=== PATIENT | male | born 1985 | race Caucasian/White ===

== ENCOUNTER 2024-08-22 21:41 | Emergency (ER) | payer BC, SELFPAY ==
--- NOTE | ~2024-08-22 | CT_ITS ---
CT of the Abdomen and Pelvis: Indication: Abdominal pain Technique: 2.5 mm axial scans were obtained through the abdomen and pelvis following intravenous adm inistration of 100 cc of Omnipaque 350. Dose reduction technique was used on this scan by utilizing a utomated exposure control and iterative reconstruction technique. The dose-length product (DLP) was 3 59.34 mGy-cm. Findings: Scans through the lung bases are unremarkable. The liver, spleen, pancreas, gallbladder, right adrenal and, and left kidney are within normal limits . There is a 3 mm right UVJ stone, with mild right hydroureteronephrosis. There is a 1.9 cm left adre nal nodule, indeterminate. There are mild atherosclerotic calcifications of the aorta. No lymphadeno fransisca. No bowel obstruction or bowel wall thickening. There is no evidence to suggest acute appendicitis. Images through the pelvis were performed. Urinary bladder otherwise unremarkable. No pelvic mass seen . No ascites. Impression: 3 mm right UVJ stone, with mild right hydroureteronephrosis. 1.9 cm indeterminate left adrenal nodule. Follow-up nonemergent MR advised to attempt to confirm missy gn adenoma. Reviewed, dictated and finalized at [facility]. Impression: 3 mm right UVJ stone, with mild right hydroureteronephrosis. 1.9 cm indeterminate left adrenal nodule. Follow-up nonemergent MR advised to a ttempt to confirm benign adenoma.
[2024-08-22 21:44] VITALS: BP 151/74; PULSE 83; RESP 14; TEMP 36.2; O2SAT 100
[2024-08-22 23:52] LABS: Basophils Absolute Auto 0.1 K/mm3 (0.0-0.1); Basophils Percent Auto 0.6 % (0.2-1.2); Eosinophils Absolute Auto 0.1 K/mm3 (0-0.3); Eosinophils Percent Auto 0.3 % (0-4.4); Hematocrit 48.5 % (42.0-52.0); Hemoglobin 16.6 g/dL (14.0-18.0); Immature Granulocyte Percent A 0.5 % (0-0.5); Lymphocytes Absolute Auto 1.71 K/mm3 (0.9-3.2); Lymphocytes Percent Auto 8.4 % (18.3-44.2); Mean Corpuscular HGB Conc 34.2 g/dl (32-36); Mean Corpuscular Hemoglobin 31.6 pg (26-34); Mean Corpuscular Volume 92.4 fl (80-100); Mean Platelet Volume 9.7 fl (7.4-10.4); Monocytes Percent Auto 4.6 % (2.6-8.5); Neutrophils Absolute Auto 17.5 K/mm3 (1.3-6.7); Neutrophils Percent Auto 85.6 % (45.5-73.1); Platelet Count Result 288 k/mm3 (150-375); Red Blood Count 5.25 M/mm3 (4.6-6.20); Red Cell Distribution Width 12.9 % (11.5-14.5); White Blood Count 20.4 K/mm3 (4.5-10.0)
[2024-08-23 00:04] LABS: Alanine Aminotransferase 13 U/L (6-50); Albumin Level 4.8 g/dL (3.5-5.1); Alkaline Phosphatase 100 U/L (38-126); Anion Gap 9 mmol/L (4-12); Aspartate Amino Transferase 27 U/L (17-59); Bilirubin,Total 0.6 mg/dL (0.2-1.3); Blood Urea Nitrogen 14 mg/dL (9-20); Calcium 9.5 mg/dL (8.4-10.2); Carbon Dioxide 27 mmol/L (22-30); Chloride 101 mmol/L (98-107); Estimated CRCL calculation 102 ml/min; Estimated Glomerular Filt Rate > 60; Glucose 112 mg/dL (65-110); Lipase 53 U/L (23-300); Sodium 137 mmol/L (137-145)
--- NOTE | 2024-08-23 00:04 | ED.ABDPAIN ---
HPI - Abdominal Pain General Chief Complaint: Abdominal Pain Stated Complaint: lower abd pain Time Seen by Provider: 08/22/24 23:53 Source: patient Mode of arrival: ambulatory Limitations: no limitations History of Present Illness HPI narrative: This is a 38 year old male that presents to the ER for right lower quadrant abdominal pain. Ongoing over the last couple of hours. Reports some right sided low back pain as well. Reports an episode of vomiting. Denies fever, dysuria or hematuria. Related Data Allergies Allergy/AdvReac Type Severity Reaction Status Date / Time No Known Allergies Allergy Verified 08/22/24 21:42 Review of Systems Review of Systems: CONSTITUTIONAL: Denies fever GASTROINTESTINAL: Reports abdominal pain, nausea, vomiting. Denies diarrhea. GENITOURINARY: Denies dysuria or hematuria. All systems reviewed & are unremarkable except as noted in HPI and below PMFSH Past Medical History Medical History (Updated 08/23/24 @ 01:58 by Catarina Heller PA-C) No active medical problems Social History Social History (Updated 08/23/24 @ 00:07 by Catarina Heller PA-C) Smoking status: Current every day smoker Exam Narrative: GENERAL: Well-appearing, well-nourished, and in no acute distress. HEAD: Normocephalic, atraumatic. EYES: EOMI. CHEST: Clear to auscultation. No respiratory distress. No wheezes rales or rhonchi HEART: Regular rate and rhythm. No murmur heard. Normal peripheral pulses. ABDOMEN: Soft, nondistended, normal active bowel sounds. Tender to palpation in the right lower quadrant, without guarding EXTREMITIES: Normal range of motion. No edema. SKIN: Warm, dry, no rash. NEURO: No focal deficits. Alert and oriented x3. PSYCH: Normal mood and affect Course Course Emergency Course: Patient updated on workup thus far. He does not wish to stay for read by radiologist. Will be treated for kidney stone. Given strict return precautions Vital Signs Vital signs: Vital Signs Temperature 97.1 F L 08/22/24 21:44 Pulse Rate 83 08/22/24 21:44 Respiratory Rate 14 08/22/24 21:44 Blood Pressure 151/74 H 08/22/24 21:44 Pulse Oximetry 100 08/22/24 21:44 Oxygen Delivery Room Air 08/22/24 21:44 Temperature 97.1 F L 10/07/24 21:44 Pulse Rate 79 08/23/24 01:47 Respiratory Rate 14 08/23/24 01:47 Blood Pressure 135/89 08/23/24 01:47 Pulse Oximetry 100 08/23/24 01:47 Oxygen Delivery Room Air 08/22/24 21:44 MDM - Abdominal Pain MDM Narrative Medical decision making narrative: Patient presents to the emergency department for right lower quadrant abdominal pain as well as right flank pain. He is afebrile and nontoxic appearing. His vitals are stable. CBC with leukocytosis to 20.4. Metabolic panel without concerning findings. Urine without evidence of infection, does show red blood cells. Patient updated on workup thus far. He does not wish to stay for read of his CT scan by radiologist. Will be treated for kidney stone. Given strict return precautions Differential Diagnosis Differential diagnosis: Likely acute appendicitis and calculus of kidney Lab Data Attestation: I reviewed the patient's lab results. 08/22/24 23:47 08/22/24 23:47 Labs: Lab Results 08/22/24 08/23/24 Range/Units 23:47 00:20 WBC 20.4 H (4.5-10.0) K/mm3 RBC 5.25 (4.6-6.20) M/mm3 Hgb 16.6 (14.0-18.0) g/dL Hct 48.5 (42.0-52.0) % MCV 92.4 (80-100) fl MCH 31.6 (26-34) pg MCHC 34.2 (32-36) g/dl RDW 12.9 (11.5-14.5) % Plt Count 288 (150-375) k/mm3 MPV 9.7 (7.4-10.4) fl Immature Gran % (Auto) 0.5 (0-0.5) % Neut % (Auto) 85.6 H (45.5-73.1) % Lymph % (Auto) 8.4 L (18.3-44.2) % [place] % (Auto) 4.6 (2.6-8.5) % Eos % (Auto) 0.3 (0-4.4) % Baso % (Auto) 0.6 (0.2-1.2) % Lymph # (Auto) 1.71 (0.9-3.2) K/mm3 [place] # (Auto) 1.0 H (0.1-0.6) K/mm3 Eos # (Auto) 0.1 (0-0.3) K/mm3 Baso # (Auto)
[2024-08-23] MEDS: MORPHINE SULFATE (*CRX) 4 MG/ML INJ IV PUSH (00:16)
[2024-08-23] MEDS: ONDANSETRON INJ 4 MG/2 ML VIAL IV PUSH (00:16)
[2024-08-23] MEDS: KETOROLAC 15 MG/ML VIAL (*BKC) IV PUSH (01:11)
[2024-08-23 01:26] LABS: Add Urine Microscopic? YES; Appearance Urine Turbid (Clear); Bacteria Urine None Seen /hpf; Bilirubin Urine 1+ (Negative); Blood Urine 3+ (Negative); Calcium Oxalate Crystals Urine Present /hpf; Color Urine Dark Yellow (Yellow); Glucose Urine UA Negative (Negative); Ketones Urine Trace mg/dL (Negative); Leukocyte Esterase Ur 1+ LEU/UL (Negative); Need Manual Microscopic Reviewed; Nitrate Urine Negative (Negative); Protein Urine 1+ mg/dL (Negative); RBC Urine 21-50 /hpf (0-2); Specific Grav Ur 1.034 (1.001-1.035); Squamous Epithelial Cell Urine Occasional /hpf (Few); WBC Urine 0-5 /hpf (0-3)
[2024-08-23 01:47] VITALS: BP 135/89; PULSE 79; RESP 14; O2SAT 100
== END 2024-08-23 02:20 | disposition home or self-care (01) ==
PROVIDERS: Emergency Medicine; Emergency Provider Physician Assistant
DX: N13.2 Hydronephrosis with renal and ureteral calculous obstruction (principal); F17.200 Nicotine dependence, unspecified, uncomplicated; E27.9 Disorder of adrenal gland, unspecified
CPT/HCPCS: 36415; 74177; 80053; 81001; 83690; 85025; 87086; 96374; 96375; 99284; J1885; J2270; J2405; Q9967